=== PATIENT | male | born 1980 | race African-American/Black ===

== ENCOUNTER 2017-05-12 10:25 | Emergency (ER) | payer SELFPAY ==
[~2017-05-12] VITALS: Ht 185.4 cm; Wt 74.4 kg
[~2017-05-12 10:25] MED LIST: CLINDAMYCIN HC150 MG PO; GUAIFEN-PSE 6001 TER PO; NO HOME MEDICATIONS; NORCO 325 MG-7.1 TAB PO; PERCOCET 325 MG1 TA2 PO; VALIUM10 MG PO
[2017-05-12 10:36] VITALS: BP 121/74; TEMP 98.7
[2017-05-12] MEDS ORDERED: NAPROSYN500 MG PO (12:28)
[2017-05-12 12:41] VITALS: PULSE 80
== END 2017-05-12 12:43 | disposition home or self-care (01) ==
LOC: COL.ER 10:25
DX: M54.5 Low back pain (principal); F17.210 Nicotine dependence, cigarettes, uncomplicated; F12.90 Cannabis use, unspecified, uncomplicated
CPT/HCPCS: J1885

== ENCOUNTER 2021-03-16 12:24 | Emergency (ER) | payer SELFPAY ==
[~2021-03-16] VITALS: Ht 185.4 cm; Wt 80.0 kg
[~2021-03-16 12:24] MED LIST changes: +NAPROSYN500 MG PO
[2021-03-16 12:27] VITALS: BP 128/86; PULSE 92; TEMP 97.5
[2021-03-16] MEDS ORDERED: PERCOCET 325 MG1 TA2 PO (13:01)
[2021-03-16] MEDS ORDERED: ZOFRAN ODT4 MG PO ×2 (13:01)
[2021-03-16] MEDS ORDERED: AMOXICILLIN 50500 MG PO (13:12)
== END 2021-03-16 13:13 | disposition home or self-care (01) ==
LOC: COL.ER 12:24
DX: K04.7 Periapical abscess without sinus (principal)